=== PATIENT | female | born 2000 | race Two or more races ===

== ENCOUNTER 2021-06-12 09:00 | Outpatient (CLI) | payer OTHER | END 2021-06-12 09:30 | disposition home or self-care (01) | LOC: PPH VACUNA 09:00 | PROVIDERS: ATTEND Emergency Medicine Pediatric Emergency Medicine | DX: Z23 Encounter for immunization (principal) ==

== ENCOUNTER → 2022-06-28 09:38 | Outpatient (CLI) | payer OTHER | END | disposition home or self-care (01) | LOC: LAB 09:38 | PROVIDERS: ATTEND Radiology Diagnostic Radiology | DX: R16.0 Hepatomegaly, not elsewhere classified (principal) ==